=== PATIENT | female | born 1990 | race Caucasian/White ===

== ENCOUNTER → 2025-09-03 | Outpatient (REF) | payer OTHER ==
[~2025-09-03] MED LIST: IOPAMIDOL 370 MG/ML 100 ML INFUS..BTL INJ ONE
== END ==
LOC: DX 11:19
PROVIDERS: ATTEND Family Medicine
DX: Z98.890 Other specified postprocedural states (principal)
CPT/HCPCS: 58340; 74740; 81025; Q9967